=== PATIENT | female | born 1960 | race Asian ===

== ENCOUNTER 2017-05-13 09:48 | Emergency (ER) | payer OTHER ==
[2017-05-13 10:07] VITALS: BP 96/58
--- NOTE | 2017-05-13 10:16 | UC ---
Skin Complaint HPI - HPI Summary HPI Summary: red rash left axilla and on outer red ring as well---is not painful or itching- has had tick bites in the recent past believes this was participated by a spider bite - History of Current Complaint Chief Complaint: UCSkin Time Seen by Provider: 05/13/17 10:06 Stated Complaint: BUG BITE RASH Hx Obtained From: Patient Hx Last Menstrual Period: 02/03/2014 ?: No Onset/Duration: Sudden Onset Timing: Constant Onset Severity: Mild Current Severity: Moderate Location: Discrete Character: Redness Aggravating: Nothing Alleviating: Nothing Associated Signs & Symptoms: Positive: Negative, Rash Related History: Possible Reaction to: Insect - Allergy/Home Medications Allergies/Adverse Reactions: Allergies Allergy/AdvReac Type Severity Reaction Status Date / Time allergy shot Allergy See Comment Uncoded 05/13/17 10:07 Review of Systems Constitutional: Negative Skin: Rash - bulls eye shaped rash right axilla about 8 inch in diameter Eyes: Negative ENT: Negative Respiratory: Negative Cardiovascular: Negative Gastrointestinal: Negative Genitourinary: Negative Motor: Negative Neurovascular: Negative Musculoskeletal: Negative Neurological: Negative Psychological: Negative All Other Systems Reviewed And Are Negative: Yes PMH/Surg Hx/FS Hx/Imm Hx Previously Healthy: Yes - Surgical History Surgical History: Yes Surgery Procedure, Year, and Place: Laparoscopy, C sections x2 - Family History Known Family History: Positive: Hypertension Negative: Cardiac Disease - Social History Occupation: Employed Full-time Lives: With Family Alcohol Use: None Substance Use Type: None Smoking Status (MU): Never Smoked Tobacco Have You Smoked in the Last Year: No Physical Exam Triage Information Reviewed: Yes Appearance: Well-Appearing, No Pain Distress, Well-Nourished Vital Signs: Initial Vital Signs Temp 98.8 F 05/13/17 10:03 Pulse 79 05/13/17 10:03 Resp 16 05/13/17 10:03 BP 96/58 05/13/17 10:03 Pulse Ox 99 05/13/17 10:03 Vital Signs Reviewed: Yes Eye Exam: Normal Eyes: Positive: Conjunctiva Clear ENT Exam: Normal ENT: Positive: Normal ENT inspection, Hearing grossly normal, Nasal congestion, Nasal drainage, Trismus, Muffled/hoarse voice Dental Exam: Normal Neck exam: Normal Neck: Positive: Supple, Nontender, No Lymphadenopathy Respiratory Exam: Normal Respiratory: Positive: Chest non-tender, Lungs clear, Normal breath sounds, No respiratory distress, No accessory muscle use Cardiovascular Exam: Normal Cardiovascular: Positive: RRR, Pulses Normal, Brisk Capillary Refill Abdominal Exam: Normal Abdomen Description: Positive: Nontender, No Organomegaly, Soft Neurological Exam: Normal Neurological: Positive: Alert, Muscle Tone Normal Psychological Exam: Normal Skin: Positive: Other - bulls eye looking rash left axilla Course/Dx - Course Course Of Treatment: Lyme titer, Doxycycline, follow with pcp - Differential Diagnoses - Skin Complaint Differential Diagnoses: Cellulitis, Local Allergic Reaction, Tick Born Illness - Diagnoses Provider Diagnoses: erythema Migranes Discharge - Discharge Plan Condition: Stable Disposition: HOME Prescriptions: DOXYcycline CAP(*) [DOXYcycline 100MG CAP(*)] 100 mg PO BID #28 cap Patient Education Materials: Lyme Disease (ED), Cellulitis (ED) Referrals: Eden Garza MD [Medical Doctor] - 5 Days Additional Instructions: If your Lyme test is positive you will need to refill your Doxycycline and continue the medication for 4 weeks
--- NOTE | 2017-05-17 13:04 | ED ---
Progress - Progress Note Progress Note: pt was seen at the [facility] on May 13, 2017. pt was treated for Lyme's disease for 14 days. pt's lyme titer was positive. pt is to continue with antibiotics Doxycycline until comopletion. Course/Dx - Course Course Of Treatment: Lyme titer, Doxycycline, follow with pcp - Diagnoses Provider Diagnoses: Acute Lyme disease
[2017-05-17 16:16] LABS: Lyme Disease IgG Ab WB Negative (Negative)
== END 2017-05-13 10:41 | disposition home or self-care (01) ==
LOC: UCEAST 09:48
DX: A26.0 Cutaneous erysipeloid (principal)
CPT/HCPCS: 86617; 86618; 99212; G0463